=== PATIENT | male | born 1975 | race African-American/Black ===

== ENCOUNTER 2022-09-15 08:34 | Emergency (ER) | payer MEDICAID, OTHER ==
[~2022-09-15] VITALS: Ht 180.3 cm; Wt 100.0 kg
[2022-09-15 09:11] LABS: BASOPHILS % 0.5 % (0.0-2.0); EOSINOPHILS % 0.8 % (0.0-5.0); HEMATOCRIT. 40.4 % (42.0-52.0); HEMOGLOBIN. 12.7 g/dL (14.0-18.0); LYMPHOCYTES % 12.3 % (20.0-50.0); MEAN CORPUSCULAR HEMOGLOBIN 23.9 pg (28.0-32.0); MEAN CORPUSCULAR VOLUME 75.8 fL (80.0-94.0); MEAN PLATELET VOLUME 8.9 fl (7.4-10.4); MONOCYTES % 8.2 % (2.0-8.0); NEUTROPHILS % 78.2 % (40.0-76.0); PLATELET 260 x1000/uL (130-400); RED BLOOD CELL COUNT 5.33 mill/uL (4.7-6.1); RED CELL DISTRIBUTION WIDTH 14.8 % (11.6-14.6)
[2022-09-15 09:19] LABS: CHLORIDE 109 mEq/L (98-107)
[2022-09-15] MEDS ORDERED: LORAZEPAM 2MG/ML CPJ IM STA (09:24)
[2022-09-15 09:26] LABS: ETHANOL BLOOD < 10 mg/dL
[2022-09-15] MEDS ORDERED: OLANZAPINE 10 MG/VIAL IM ONE ×2 (09:30→19:30)
[2022-09-15] MEDS ORDERED: SODIUM CHLORIDE 0.9% 1,000 ML IV ONE (12:15)
[2022-09-15 16:07] LABS: CLARITY URINE CLEAR (CLEAR); COLOR URINE YELLOW (YELLOW); KETONES URINE 2+ (NEGATIVE); LEUKOCYTE ESTERASE URINE NEGATIVE (NEGATIVE); NITRITE URINE NEGATIVE (NEGATIVE); OCCULT BLOOD URINE 1+ (NEGATIVE); PH URINE 5.5 (4.5-8.0); PROTEIN URINE TRACE (NEGATIVE); SPECIFIC GRAVITY URINE 1.013 (1.005-1.030); UROBILINOGEN URINE 0.2 E.U./dL (0.2-1.0)
[2022-09-15 16:23] LABS: *AMPHETAMINES SCREEN URINE NEGATIVE (NEGATIVE); *BARBITURATES SCREEN URINE NEGATIVE (NEGATIVE); *BENZODIAZEPINES SCREEN URINE NEGATIVE (NEGATIVE); *COCAINE SCREEN URINE NEGATIVE (NEGATIVE); CANNABINOID URINE SCREEN NEGATIVE (NEGATIVE); METHADONE URINE SCREEN NEGATIVE (NEGATIVE); OPIATES URINE SCREEN NEGATIVE (NEGATIVE); PHENCYCLIDINE URINE SCREEN PRESUMTIVE POSITIVE (NEGATIVE)
[2022-09-15] MEDS ORDERED: HALOPERIDOL LACTATE 5MG/ML VIAL IM ONE (16:30)
[2022-09-15] MEDS ORDERED: LORAZEPAM 2MG/ML CPJ IM ONE (19:30)
[2022-09-16] MEDS ORDERED: ONDANSETRON 4MG ODT PO ONE (05:00)
[2022-09-16] MEDS ORDERED: PREDNISONE 20MG TABLET PO STA (05:32)
[2022-09-16] MEDS ORDERED: IPRATROPIUM BROMIDE (0.02%) 0.5MG/2.5ML NEB HHN STA (05:32)
[2022-09-16] MEDS ORDERED: ALBUTEROL (0.083%) 2.5MG/3ML NEB HHN STA (05:32)
[2022-09-16 10:00] VITALS: BP 124/76
[2022-09-16] MEDS ORDERED: P50 PO (10:05)
[2022-09-16] MEDS ORDERED: ALBU6.7H3 INH (10:05)
== END 2022-09-16 10:29 | disposition home or self-care (01) ==
LOC: ER 08:34
DX: S01.01XA Laceration without foreign body of scalp, initial encounter (principal); R41.82 Altered mental status, unspecified; R06.02 Shortness of breath; Z88.0 Allergy status to penicillin; Z20.822 Contact with and (suspected) exposure to COVID-19; W18.30XA Fall on same level, unspecified, initial encounter; Y93.89 Activity, other specified; Y92.89 Other specified places as the place of occurrence of the external cause; Y99.8 Other external cause status
CPT/HCPCS: 12001; 36415; 70450; 72125; 80053; 80305; 80320; 81003; 85025; 87426; 94640; 96360; 96361; 96372; 99291; C9803; J1630; J2060; J3490; J7030; J7512; Q0162; Z7610; G0480

== ENCOUNTER 2025-04-12 18:01 | Emergency (ER) | payer MEDICAID, OTHER ==
[~2025-04-12] VITALS: Ht 170.2 cm; Wt 86.0 kg
[~2025-04-12 18:01] MED LIST: ALBU6.7H3 INH; P50 PO
[2025-04-12 18:05] VITALS: BP 170/99; PULSE 110; RESP 18; TEMP 98; O2SAT 95
== END 2025-04-12 18:32 | disposition home or self-care (01) ==
LOC: ER 18:01
DX: G92.9 Unspecified toxic encephalopathy (principal); F16.129 Hallucinogen abuse with intoxication, unspecified; Z88.0 Allergy status to penicillin
CPT/HCPCS: 99283